=== PATIENT | female | born 1985 ===

== ENCOUNTER 2020-08-22 06:56 | Outpatient (REF) | payer MEDICAID, SELFPAY | END 2020-08-22 06:57 | disposition home or self-care (01) | LOC: HO.LAB 06:56 | PROVIDERS: Visit Provider Internal Medicine | DX: Z20.828 Contact with and (suspected) exposure to other viral communicable diseases (principal) | CPT/HCPCS: C9803; U0003 ==

== ENCOUNTER 2020-11-02 06:39 | Outpatient (REF) | payer MEDICAID, SELFPAY | END 2020-11-02 06:40 | disposition home or self-care (01) | LOC: HO.LAB 06:39 | PROVIDERS: PCP Internal Medicine; Visit Provider Internal Medicine | DX: Z20.822 Contact with and (suspected) exposure to COVID-19 (principal) | CPT/HCPCS: 36415; C9803; U0003 ==

== ENCOUNTER 2020-12-06 07:36 | Outpatient (REF) | payer MEDICAID, SELFPAY | END 2020-12-06 07:37 | disposition home or self-care (01) | LOC: HO.LAB 07:36 | PROVIDERS: Visit Provider Internal Medicine | DX: Z20.822 Contact with and (suspected) exposure to COVID-19 (principal) | CPT/HCPCS: 36415; C9803; U0003 ==

== ENCOUNTER 2021-01-17 08:01 | Outpatient (REF) | payer MEDICAID, SELFPAY ==
[2021-01-17 08:27] LABS: COVID-19 Test Negative (Negative); IDNOW Serial# 08D9AD1C
== END 2021-01-17 08:02 | disposition home or self-care (01) ==
LOC: HO.LAB 08:01
PROVIDERS: Visit Provider Internal Medicine
DX: Z20.822 Contact with and (suspected) exposure to COVID-19 (principal)
CPT/HCPCS: 36415; 87635; C9803

== ENCOUNTER 2021-01-22 13:00 | Outpatient (REF) | payer MEDICAID, SELFPAY ==
[2021-01-22 15:12] LABS: COVID-19 Test Negative (Negative)
== END 2021-01-22 13:01 | disposition home or self-care (01) ==
LOC: HO.LAB 13:00
PROVIDERS: Visit Provider Internal Medicine
DX: Z20.822 Contact with and (suspected) exposure to COVID-19 (principal)
CPT/HCPCS: 36415; 87635; C9803

== ENCOUNTER 2021-02-05 07:48 | Outpatient (REF) | payer MEDICAID, SELFPAY ==
[2021-02-05 08:08] LABS: COVID-19 Test Negative (Negative)
== END 2021-02-05 07:49 | disposition home or self-care (01) ==
LOC: HO.LAB 07:48
PROVIDERS: Visit Provider Internal Medicine
DX: Z20.822 Contact with and (suspected) exposure to COVID-19 (principal)
CPT/HCPCS: 36415; 87635; C9803

== ENCOUNTER 2021-05-14 09:19 | Outpatient (REF) | payer MEDICAID, SELFPAY | END 2021-05-14 09:20 | disposition home or self-care (01) | LOC: HO.LAB 09:19 | PROVIDERS: Visit Provider Internal Medicine | DX: Z20.822 Contact with and (suspected) exposure to COVID-19 (principal) | CPT/HCPCS: C9803; U0003; U0005 ==

== ENCOUNTER 2021-06-01 08:48 | Outpatient (REF) | payer MEDICAID, SELFPAY | END 2021-06-01 08:49 | disposition home or self-care (01) | LOC: HO.LAB 08:48 | PROVIDERS: Visit Provider Internal Medicine | DX: Z20.822 Contact with and (suspected) exposure to COVID-19 (principal) | CPT/HCPCS: C9803; U0003; U0005 ==

== ENCOUNTER 2021-10-30 08:04 | Outpatient (REF) | payer MEDICAID, SELFPAY ==
[2021-10-30 08:43] LABS: Binax Internal Control QC Valid; Binax Now Covid-19 Ag Negative (Negative)
== END 2021-10-30 08:05 | disposition home or self-care (01) ==
LOC: HO.LAB 08:04
PROVIDERS: Visit Provider Internal Medicine
DX: Z20.822 Contact with and (suspected) exposure to COVID-19 (principal)
CPT/HCPCS: C9803

== ENCOUNTER 2021-11-30 08:17 | Outpatient (REF) | payer MEDICAID, SELFPAY ==
[2021-11-30 08:39] LABS: COVID-19 Test Negative (Negative); IDNOW Serial# 16C4AD1C
== END 2021-11-30 08:18 | disposition home or self-care (01) ==
LOC: HO.LAB 08:17
PROVIDERS: Visit Provider Internal Medicine
DX: Z20.822 Contact with and (suspected) exposure to COVID-19 (principal)
CPT/HCPCS: 87635; C9803

== ENCOUNTER 2024-11-29 10:28 | Emergency (ER) | payer MEDICAID, SELFPAY ==
--- NOTE | ~2024-11-29 | XR_ITS ---
CLINICAL HISTORY: CP Chest radiographs, 2 views Comparison: None Findings: The cardiomediastinal silhouette is not enlarged. Pulmonary vascularity is unremarkable. No focal consolidation or effusion. No pneumothorax. IMPRESSION: No acute cardiopulmonary findings. This document has been electronically signed by: Gurinder Delgado DO on 11/29/2024 11:55:57
[2024-11-29 10:40] VITALS: BP 110/72; PULSE 72; RESP 18; TEMP 36.8; O2SAT 100; BMI 23.7
--- NOTE | 2024-11-29 11:03 | ECG_ITS ---
Test Reason : CP Blood Pressure : */* mmHG Vent. Rate : 70 BPM Atrial Rate : 70 BPM P-R Int : 96 ms QRS Dur : 72 ms QT Int : 380 ms P-R-T Axes : 40 64 46 degrees QTcB Int : 410 ms Sinus rhythm with short NH Otherwise normal ECG No previous ECGs available Referred By: Nohemi Orozco Electronically Signed By: RENA OROZCO
[2024-11-29 11:24] LABS: MANUAL DIFF FLAG NO
[2024-11-29 11:25] LABS: Basophils Percent Auto 0.6 % (0-2); Eosinophils Absolute Auto 0.1 X10*3/uL (0.0-0.4); Eosinophils Percent Auto 1.2 % (0-4); Hematocrit 32.4 % (37.0-47.0); Hemoglobin 10.8 g/dl (12.0-16.0); Imm Gran Abs Auto 0.01 X10*3/uL (0.00-0.03); Imm Gran Pct Auto 0.2 % (0.0-0.4); Lymphocytes Absolute Auto 1.3 X10*3/uL (1.2-4.9); Lymphocytes Percent Auto 26.5 % (20-40); Mean Corpuscular HGB Conc 33.3 g/dl (31.0-35.0); Mean Corpuscular Volume 87.1 fL (80.0-98.0); Mean Platelet Volume 11.8 fL (9.4-12.3); Monocytes Absolute Auto 0.6 X10*3/uL (0.1-1.2); Monocytes Percent Auto 12.8 % (2-11); Neutrophils Absolute Auto 2.9 x10*3/uL (2.0-8.3); Neutrophils Percent Auto 58.7 % (45-73); Platelet Count 194 X10*3/uL (160-400); Red Blood Count 3.72 X10*6/uL (4.20-5.50); Red Cell Distribution Width 15.8 % (11.0-16.0)
[2024-11-29 11:42] LABS: Alanine Aminotransferase 9 U/L (0-31); Albumin Level 4.2 g/dL (3.5-5.0); Alkaline Phosphatase 50 U/L (39-117); Anion Gap 13 (12-20); Aspartate Amino Transferase 28 U/L (5-31); Bilirubin Direct < 0.2 mg/dL (0.0-0.5); Bilirubin Total 0.1 mg/dL (0.0-1.0); Blood Urea Nitrogen 8 mg/dL (9-16); Calcium 8.7 mg/dL (8.4-10.2); Carbon Dioxide 23 mmol/L (22-29); Chloride 108 mmol/L (96-108); Creatinine Clr Calc Pharmacy 83.3; Estimated Glomerular Filt Rate > 60; Glucose Random 86 mg/dL (60-115); Lipase 12 U/L (8-78); Potassium 3.5 mmol/L (3.3-5.1); Sodium 140 mmol/L (135-145); Total Protein 7.6 g/dL (6.5-8.0)
[2024-11-29 11:48] LABS: Troponin-I High Sensitivity 5.2 ng/L (<3.5-17.0)
--- NOTE | 2024-11-29 12:10 | ED_ITS ---
HPI - General Adult General Chief complaint: Upper Respiratory Symptoms Stated complaint: Cough Fever Time Seen by Provider: 11/29/24 11:58 History of Present Illness HPI narrative: Patient was diagnosed with flu 3 days ago and is taking Tamiflu but now she has diarrhea vomiting nausea and body aches that are keeping her awake at night and is very uncomfortable, she does have chest pain only when she coughs she is not short of breath, she has a mild sore throat, she has no abdominal pain no dysuria no rash no stiff neck Related Data Previous Rx's ?Medication ?Instructions ?Recorded ondansetron 4 mg disintegrating 4 mg PO Q6H PRN nausea and 11/29/24 tablet vomiting #10 tabs oxycodone 5 mg tablet 5 mg PO Q6H PRN pain #10 tabs 11/29/24 Allergies Allergy/AdvReac Type Severity Reaction Status Date / Time Penicillins [PCN] Allergy Swelling Verified 11/29/24 10:45 PMF Past Medical History Source: nursing notes reviewed Social History Social History Advance Directives: No Advance Directives Information Provided: Yes Physical Exam ED Vital Signs: Vital Signs - 24 hr 11/29/24 10:40 11/29/24 15:09 Temperature 98.2 F 98.3 F Pulse Rate 72 76 Respiratory Rate 18 18 Blood Pressure 110/72 118/72 Pulse Oximetry 100 100 Oxygen Delivery Method Room Air Room Air BMI result Body Mass Index 23.7 General appearance uncomfortable appearing but no acute distress speaking full sentences breathing easily The eyes no redness or discharge The sinuses nontender The pharynx is clear no redness swelling or exudate voice is normal mucous membranes are moist The neck is supple Chest is clear to auscultation bilateral Heart no murmur Abdomen soft nontender Extremities full range motion x4 no edema no calf tenderness Skin no rash Course Course Course Narrative: CBC there was no white count, there was a mild anemia which she said she had had before with 10.8 hemoglobin 32.4 hematocrit, she is advised to get that rechecked with primary doctor Chemistry was without significant abnormality, troponin was checked and was 5.2, LFTs in the normal range EKG was a sinus rhythm with short TX with a rate of 70, no acute ischemic changes no ST elevations Chest x-ray was normal no pneumonia Patient was given a L of fluids and Zofran and was tolerating p.o. and feeling significantly improved and was discharged Medications Administered Discontinued Medications Generic Name Dose Route Start Last Admin Trade Name Lakeisha PRN Reason Stop Dose Admin Sodium Chloride 1,000 mls @ 999 mls/hr 11/29/24 13:15 11/29/24 15:21 Ns IVCONT 11/29/24 14:15 Infused .Q1H1M TANNER Infusion Ketorolac Tromethamine 15 mg 11/29/24 14:29 11/29/24 15:22 Ketorolac Tromethamine 15 Mg/Ml Vial IVPUSH 11/29/24 14:30 15 mg ONCE ONE Administration Ondansetron HCl 4 mg 11/29/24 13:05 11/29/24 13:21 Ondansetron Hcl 4 Mg/2 Ml Vial IVPUSH 11/29/24 13:06 4 mg ONCE ONE Administration Medical Decision Making Lab Data [facility] Lab Attestation statement: I reviewed the patient's lab results. 11/29/24 11:17 11/29/24 11:17 Labs: Lab Results 11/29/24 Range/Units 11:17 WBC 5.0 (4.8-10.8) X10*3/uL RBC 3.72 L (4.20-5.50) X10*6/uL Hgb 10.8 L (12.0-16.0) g/dl Hct 32.4 L (37.0-47.0) % MCV 87.1 (80.0-98.0) fL MCH 29.0 (27.0-33.0) pg MCHC 33.3 (31.0-35.0) g/dl RDW 15.8 (11.0-16.0) % Plt Count 194 (160-400) X10*3/uL MPV 11.8 (9.4-12.3) fL Immature Gran % (Auto) 0.2 (0.0-0.4) % Neut % (Auto) 58.7 (45-73) % Lymph % (Auto) 26.5 (20-40) % [place] % (Auto) 12.8 H (2-11) % Eos % (Auto) 1.2 (0-4) % Baso % (Auto) 0.6 (0-2) % Lymph # (Auto) 1.3 (1.2-4.9) X10*3/uL [place] # (Auto) 0.6 (0.1-1.2) X10*3/uL Eos # (Auto) 0.1 (0.0-0.4) X10*3/uL Baso # (Auto) 0.0 (0.0-0.2) X10*3/uL Abs Immat Gran (auto) 0.01 (0.00-0.03) X10*3/uL Absolute Neuts (auto) 2.9 (2.0-8.3) x10*3/uL Absolute Nucleated RBC 0.000 (0.0-0.012) X10*3/uL Nucleated RBC % (auto) 0.0 (0.0-0.2) /100WBC Sodium 140 (135-145) mmol/L Potassium 3.5 (3.3-5.1) mmol/L Chloride 108 (96-108) mmol/L Carbon Dioxide 23 (22-29) mmol/L Anion Gap 13 (12-20) BUN 8 L (9-16) mg/dL Creatinine 0.67 (0.5-1.4) mg/dL Estim Creat Clear Calc 83.3 Estimated GFR > 60 Random Glucose 86 (60-115) mg/dL Calcium 8.7 (8.4-10.2) mg/dL Magnesium 2.0 (1.6-2.6) mg/dL Total Bilirubin 0.1 (0.0-1.0) mg/dL Direct Bilirubin < 0.2 (0.0-0.5) mg/dL AST 28 (5-31) U/L ALT 9 (0-31) U/L Alkaline Phosphatase 50 (39-117) U/L Troponin I High Sens 5.2 (<3.5-17.0) ng/L Total Protein 7.6 (6.5-8.0) g/dL Albumin 4.2 (3.5-5.0) g/dL Lipase 12 (8-78) U/L Influenza Type A (PCR) POSITIVE A (Negative) Influenza Type B (PCR) NEGATIVE (Negative) RSV RNA Qual (PCR) NEGATIVE (Negative) SARS-CoV-2 RNA (RT-PCR) NEGATIVE (Negative) Discharge Plan Discharge Clinical Impression: Influenza Patient Disposition: Home, Self-Care Additional Instructions: The flu can cause body aches and nausea and vomiting But sometimes Tamiflu can make vomiting and diarrhea worse You can take Zofran for nausea, it is very important stay hydrated to feel better If needed you can use Imodium for diarrhea Use Tylenol and Motrin as needed for body aches, and I wrote a few oxycodone if pain is more severe There was nothing concerning on your blood tests or EKG, your chest x-ray was normal Return to the ER any time for difficulty breathing uncontrolled vomiting and dehydration any worse condition or any concerns Prescriptions: New ondansetron 4 mg tablet,disintegrating 4 mg PO Q6H PRN (Reason: nausea and vomiting) Qty: 10 0RF oxycodone 5 mg tablet 5 mg PO Q6H PRN (Reason: pain) Qty: 10 0RF Rx Instructions: Partial Fill upon patient request. Stand Alone Forms: Work/School Release Print Language: [place]
--- OUTSIDE RECORDS SUMMARY | 2024-11-29 12:14 | XMS_ITS | Clinical Summary ---
Author Organization [facility] Address [address] [place] [address] Phone Care Team Providers Care Lehr Stripper Name Role Phone Physician, No Pcp Primary Care Provider Unavaila ble Allergies Active Allergy Reactions Criticality Noted Date Comments Penicillins Anaphylaxis High 06/19/2016 Other reaction(s): Throat Tightness Patient reported Patient reported Other reaction(s): Throat Tightness Patient reported Medications oseltamivir (TAMIFLU) 75 mg capsule Take 1 capsule (75 mg total) by mouth every 12 (twelve) hours for 5 days. 10 capsule 11/27/2024 Active ibuprofen (ADVIL,MOTRIN) 600 mg tablet Take 1 tablet (600 mg total) by mouth every 6 (six) hours if needed for mild pain. 30 tablet 11/27/2024 Active pseudoephedrine (SUDAFED) 120 mg 12 hr tablet Take 1 tablet (120 mg total) by mouth every 12 (twelve) hours if needed for congestion. Do not crush, chew, or split. 20 each 11/27/2024 Active Encounters Date Type Department Care Team Description 11/27/2024 8:04 AM EST - 11/27/2024 9:[address] [facility] [address] [place] [address] Influenza A (Primary Dx) Discharge Disposition: Home or Self Care from Last 3 Months Medical History Medical History Date Comments Asthma Tachycardia Social History Tobacco Use Types Packs/Day Years Used Date Smoking Tobacco: Every Day Cigarettes Smokeless Tobacco: Never Tobacco Cessation:Ready to Q uit: Not Asked; Counseling Given: Not Answered Comments Unknown Sex and Gender Information Value Date Recorded Sex Assigned at Not on file Legal Sex Female 11:27 PM EST Gender Identity Not on file Sexual Orientation Not on file Obstetrics History Last Filed Vital Signs Vital Sign Reading Time Taken Comments Blood Pressure 111/60 11/27/2024 9:24 AM EST Pulse 90 11/27/2024 9:24 AM EST Temperature 36.8 ??C (98.2 ??F) 11/27/2024 9:24 AM ES T Respiratory Rate 16 11/27/2024 9:24 AM EST Oxygen Saturation 98% 11/27/2024 9:24 AM EST Inhaled Oxygen Concentration - - Weight 59 kg (130 lb) 11/27/2024 8:12 AM EST Height 154.9 cm (5' 1 ) 11/27/2024 8:12 AM EST Body Mass Index 24.56 11/27/2024 8:12 AM EST Plan of Treatment Health Maintenance Due Date Last Done Comments Breast Cancer Screening 1983 Cervical Cancer Screening: Pap Smear 2004 Hepatitis B Vaccines (3 of 3 - 19+ 3-dose series) 10/04/2020 08/09/2020, 03/02/2019, 03/24/2018 Pneumococcal Vaccine: Pediatrics (0 to 5 Years) and At-Risk Patients (6 to 64 Years) (2 of 2 - PCV) 08/09/2021 08/09/2020 Cholesterol Screening (Lipid Panel) 09/15/2022 HIV Screening 09/15/2022 Social Influencers of Health Screening 09/15/2022 Depression Screening 04/27/2024 04/27/2023 COVID-19 Vaccine ( season) 2024 03/27/2022, 08/22/2021, 02/17/2021 Influenza Vaccine (#1) 2024 2, 08/09/2020, 08/19/2018, Additional history exists DTaP,Tdap,and Td Vaccines (2 - Td or Tdap) 07/23/2026 07/23/2016 Hepatitis C Screening Completed 03/02/2019 HIB Vaccines Aged Out No longer eligi ble based on patient's age to complete this topic HPV Vaccines Aged Out No longer eligi ble based on patient's age to complete this topic Hepatitis A Vaccines Aged Out No long er eligible based on patient's age to complete this topic IPV Vaccines Aged Out No longer eligi ble based on patient's age to complete this topic MMR Vaccines Aged Out No longer eligi ble based on patient's age to complete this topic Meningococcal ACWY Vaccine Aged Out N o longer eligible based on patient's age to complete this topic Meningococcal B Vacine Aged Out No lo nger eligible based on patient's age to complete this topic RSV Immunization Patients Under 20 months Aged Out No longer eligible based on patient's age to complete this topic Varicella Vaccines Aged Out No longer eligible based on patient's age to complete this topic Procedures Procedure Name Priority Date/Time Associated Diagnosis Comments [id number], RSV, FLU A AND B QUALITATIVE RT-PCR, INTERNAL LAB STAT 11/27/2024 8:03 AM EST from Last 3 Months Results * (ABNORMAL) [id number], RSV, Influenza A and B qualitative RT-PCR (11/27/2024 8:03 AM EST) Influenza A PCR Detected(A) Not Detected LAB MICROBIOLOGY METHOD 11/27/2024 9:08 AM [facility] Comment:This patient is posi tive for influenza A. If the patient is admitted, please order the Respiratory Virus Panel PCR ([facility] ID: [id number]) so our lab can subtype the influenza A, per CDC recommendations. Influenza B PCR Not Detected Not Detected LAB MICROBIOLOGY METHOD 11/27/2024 9:08 AM [facility] RSV PCR Not Detected Not Detected LAB MICROBIOLOGY METHOD 11/27/2024 9:08 AM [facility] SARS COV-2 Not Detected Not Detected LAB MICROBIOLOGY METHOD 11/27/2024 9:08 AM [facility] Swab Both anterior nares / Unknown Non-blood Collection / Unknown 11/27/2024 8:03 AM EST 11/27/2024 8:17 AM EST [facility] - 11/27/2024 9:08 AM EST Disclaimer: ??Testing was performed using the Cepheid GeneXpert Xpress SARS-CoV-2 _Flu_RSV PLUS PCR assay. ??The manner in which this information is used to guide patient care is the responsibility of the healthcare provider. ??Results should be correlated with the clinical history, epidemiological data, and other data available to the clinician evaluating the patient. ??Negative results do not preclude infection. ??This test has been authorized by the FDA under an Emergency Use Authorization (EUA). ??This test is only authorized for the duration of time the declaration that circumstances exist justifying the authorization of the emergency use of in vitro diagnostic tests for detection of SARS-CoV-2 virus and/or diagnosis of COVID-19 infection under section 564 (b) (1) of the Act, 21 U.S.C 360bbb-3 (b) (1), unless the authorization is terminated or revoked sooner. ?? Reference Range: Not Detected Fact sheet for Healthcare providers can be found at https://www.fda.gov/media/556002/download. ?? Fact sheet for Healthcare patients can be found at https://www.fda.gov/media/941425/download. us [facility] MICROBIOLOGY - GENER AL ORDERABLES Final Result [facility] [address] [place] [address], from Last 3 Months Additional Health Concerns Infection Onset Date Last Indicated Influenza 11/27/2024 11/27/2024 Care Teams Lehr Stripper Relationship Specialty Start Date End Date Physician, No Pcp PCP - General 11/27/24
--- OUTSIDE RECORDS SUMMARY | 2024-11-29 12:14 | XMS_ITS | Encounter Summary ---
Author Organization [facility] Address [address] [place] [address] Care Team Providers Care Outbound Sales Advisor Name Role Phone Physician, No Pcp Primary Care Provider Unavaila ble Reason for Visit * Reason Comments Flu Symptoms Fever, bodyaches, co ugh since yesterday Encounter Details Date Type Department Care Team (Late st Contact Info) Description 11/27/2024 8:04 AM EST - 11/27/2024 9:44 AM EST Emergency [facility] Emergency [address] [place] [address] Influenza A (Primary Dx) Discharge Disposition: Home or Self Care Social History Tobacco Use Types Packs/Day Years Used Date Smoking Tobacco: Every Day Cigarettes Smokeless Tobacco: Never Tobacco Cessation:Ready to Q uit: Not Asked; Counseling Given: Not Answered Comments Unknown Sex and Gender Information Value Date Recorded Sex Assigned at Not on file Legal Sex Female 11:27 PM EST Gender Identity Not on file Sexual Orientation Not on file documented as of this encounter Last Filed Vital Signs Vital Sign Reading [...] Mass Index 24.56 11/27/2024 8:12 AM EST documented in this encounter Discharge Instructions * Discharge Instructions* LORIE Stephenson - 11/27/2024 9:21 AM EST Follow-up with your PCP as needed. Take the prescribed Tamiflu twice daily for the next 5 days. Take the prescribed ibuprofen 600 mg every 6 hours as needed for pain take [id number] Tylenolevery 6 hours as needed for pain (2 500 MG TABLETS). You can take up to 4000MAX in a 24 hour period. The prescribed Sudafed daily as needed for nasal congestion * Attachments The following attachments cannot be sent through Care Everywhere. * Influenza (Egyptian) documented in this encounter Medications at Time of Discharge ibuprofen (ADVIL,MOTRIN) 600 mg tablet Take 1 tablet (600 mg total) by mouth every 6 (six) hours if needed for mild pain. 30 tablet 11/27/2024 oseltamivir (TAMIFLU) 75 mg capsule Take 1 capsule (75 mg total) by mouth every 12 (twelve) hours for 5 days. 10 capsule 11/27/2024 12/02/2024 pseudoephedrine (SUDAFED) 120 mg 12 hr tablet Take 1 tablet (120 mg total) by mouth every 12 (twelve) hours if needed for congestion. Do not crush, chew, or split. 20 each 11/27/2024 documented as of this encounter Ordered Prescriptions Prescription Sig Dispense Quantity Refills Last Filled Start Date End Date pseudoephedrine (SUDAFED) 120 mg 12 hr tablet Take 1 tablet (120 mg total) by mouth every 12 (twelve) hours if needed for congestion. Do not crush, chew, or split. 20 each 11/27/2024 ibuprofen (ADVIL,MOTRIN) 600 mg tablet Take 1 tablet (600 mg total) by mouth every 6 (six) hours if needed for mild pain. 30 tablet 11/27/2024 oseltamivir (TAMIFLU) 75 mg capsule Take 1 capsule (75 mg total) by mouth every 12 (twelve) hours for 5 days. 10 capsule 11/27/2024 documented in this encounter Discharge Disposition Disposition Code Departure Means Destination Comment s Home or Self Care documented in this encounter Progress Notes * Diya Hyman RN - 11/27/2024 7:54 AM EST Pt triaged using mixer operator raw salt, pt coming in for flu like symptoms since yesterday, body aches/fevers/sob/cough * LORIE Stephenson - 11/27/2024 7:52 AM EST Emergency Medicine Note Patient Name: Rema Jimenez Initial Evaluation: 11/27/2024 : 1985 Patient's PCP: No Pcp Physician Emergency Physician: LORIE Edward History of Present Illness Chief Complaint: Chief Complaint Patient presents with Flu Symptoms Fever, bodyaches, cough since yesterday HPI: 39-year-old female with a history of asthma presents today with flulike symptoms since yesterday. Patient has had fever, chills, body aches, runny nose, congestion and fatigue. Patient did not get the flu shot this year. Patient denies any chest pain but does feel some shortness of breath with coughing. Patient denies any nausea vomiting diarrhea. ROS: I have performed a ROS with the pertinent positives and negatives documented in the history ofpresent illness. Previous History Past Medical History: Diagnosis Date Asthma Tachycardia History reviewed. No pertinent surgical history. Social History Tobacco Use Smoking status: Every Day Types: Cigarettes Smokeless tobacco: Never No family history on file. is allergic to penicillins. No current facility-administered medications on file prior to encounter. No current outpatient medications on file prior to encounter. Physical Exam ED Triage Vitals [11/27/24 0800] Temp Heart Rate Resp BP 37.2 ??C (99 ??F) (!) 117 18 122/81 SpO2 Temp Source Heart Rate Source Patient Position 100 % Oral Monitor Sitting BP Location FiO2 (%) Right arm -- General: awake, calm, cooperative, No apparent distress, sounds nasally congested, nonproductive cough heard Skin: warm, dry Eyes: PERRLA, EOMI ENT: mucosa moist Neck: soft/supple, full range of motion Respiratory: clear to auscultation Cardiovascular: regular rate and rhythm Neurological: alert with no acute lateralizing deficit Psychiatric: stable mood and affect Results Labs Reviewed [id number], RSV, FLU A AND B QUALITATIVE RT-PCR, INTERNAL LAB - Abnormal Result Value Influenza A PCR Detected (*) Influenza B PCR Not Detected RSV PCR Not Detected SARS COV-2 Not Detected Narrative: Disclaimer: Testing was performed using the [employer] GeneXpert Xpress SARS-CoV-2 _Flu_RSV PLUS PCR assay. The manner in which this information is used to guide patient care is the responsibility of the healthcare provider. Results should be correlated with the clinical history, epidemiological data,and other data available to the clinician evaluating the patient. Negative results do not preclude infection. This test has been authorized by the FDA under an Emergency Use Authorization (EUA). Thistest is only authorized for the duration of time the declaration that circumstances exist justifying the authorization of the emergency use of in vitro diagnostic tests for detection of SARS-CoV-2 virus and/or diagnosis of COVID-19 infection under section 564 (b) (1) of the Act, 21 U.S.C 360bbb-3 (b) (1), unless the authorization is terminated or revoked sooner. Reference Range: Not Detected Fact sheet for Healthcare providers can be found at https://www.fda.gov/media/762778/download. Fact sheet for Healthcare patients can be found at https://www.fda.gov/media/600128/download. Abnormal Labs Reviewed [id number], RSV, FLU A AND B QUALITATIVE RT-PCR, INTERNAL LAB - Abnormal; Notable for the following components: Result Value Influenza A PCR Detected (*) All other components within normal limits Narrative: Disclaimer: Testing was performed using the [employer] GeneXpert Xpress SARS-CoV-2 _Flu_RSV PLUS PCR assay. The manner in which this information is used to guide patient care is the responsibility of the healthcare provider. Results should be correlated with the clinical history, epidemiological data,and other data available to the clinician evaluating the patient. Negative results do not preclude infection. This test has been authorized by the FDA under an Emergency Use Authorization (EUA). Thistest is only authorized for the duration of time the declaration that circumstances exist justifying the authorization of the emergency use of in vitro diagnostic tests for detection of SARS-CoV-2 virus and/or diagnosis of COVID-19 infection under section 564 (b) (1) of the Act, 21 U.S.C 360bbb-3 (b) (1), unless the authorization is terminated or revoked sooner. Reference Range: Not Detected Fact sheet for Healthcare providers can be found at https://www.fda.gov/media/793725/download. Fact sheet for Healthcare patients can be found at https://www.fda.gov/media/589204/download. No orders to display I have discussed the incidental/abnormal imaging and/or lab abnormalities with the patient and haveinstructed them the need for further evaluation and workup with their primary care doctor. I have provided the patient with a paper copy of the abnormality. The laboratory results, imaging results and other diagnostic exam results were reviewed in the EMR. EKG Interpretation Critical Care Time None ? Medical Decision Making 39-year-old female presents today with flulike symptoms positive for influenza A. Patient is presenting within the timeframe for Tamiflu and she does have risk factors including history of asthma, did not get the influenza vaccine this year. I discussed with her the options to take Tamiflu, she wants to take it, understands the side effects. Patient was advised to continue with Tylenol at home, rest, fluids, prescription provided for ibuprofen and Tamiflu. Patient was also given prescription for Sudafed but told to stop taking it if it causes any sort of palpitations as this has affected her in the past. Medications - No data to display Clinical Impressions as of 11/27/24 0923 Influenza A Procedures Procedures Diagnosis 1. Influenza A Disposition Discharge ED Prescriptions Medication Sig Dispense Start Date End Date Auth. Provider oseltamivir (TAMIFLU) 75 mg capsule Take 1 capsule (75 mg total) by mouth every 12 (twelve) hours for 5 days. 10 capsule 11/27/2024 12/02/2024 LORIE Stephenson ibuprofen (ADVIL,MOTRIN) 600 mg tablet Take 1 tablet (600 mg total) by mouth every 6 (six) hours ifneeded for mild pain. 30 tablet 11/27/2024 -- LORIE Stephenson pseudoephedrine (SUDAFED) 120 mg 12 hr tablet Take 1 tablet (120 mg total) by mouth every 12 (twelve) hours if needed for congestion. Do not crush, chew, or split. 20 each 11/27/2024 -- LORIE Stephenson Physician Attestation LORIE Stephenson 11/27/24 0940 Cosigned by Aaron Andre MD at 11/28/2024 11:05 AM EST documented in this encounter Plan of Treatment Not on file documented as of this encounter Procedures Procedure Name Priority Date/Time Associated Diagnosis Comments [id number], RSV, FLU A AND B QUALITATIVE RT-PCR, INTERNAL LAB STAT 11/27/2024 8:03 AM EST documented in this encounter Results * (ABNORMAL) [id number], RSV, Influenza A and B qualitative RT-PCR (11/27/2024 8:03 AM EST) Influenza A PCR Detected(A) Not Detected LAB MICROBIOLOGY METHOD 11/27/2024 9:08 AM [facility] Comment:This patient is posi tive for influenza A. If the patient is admitted, please order the Respiratory Virus Panel PCR ([facility] ID: [id number]) so our lab can subtype the influenza A, per CDC recommendations. Influenza B PCR Not Detected Not Detected LAB MICROBIOLOGY METHOD 11/27/2024 9:08 AM EST [facility] RSV PCR Not Detected Not Detected LAB MICROBIOLOGY METHOD 11/27/2024 9:08 AM [facility] SARS COV-2 Not Detected Not Detected LAB MICROBIOLOGY METHOD 11/27/2024 9:08 AM [facility] Swab Both anterior nares / Unknown Non-blood Collection / Unknown 11/27/2024 8:03 AM EST 11/27/2024 8:17 AM EST [facility] - 11/27/2024 9:08 AM EST Disclaimer: ??Testing was performed using the [employer] GeneXpert Xpress SARS-CoV-2 _Flu_RSV PLUS PCR assay. [...] for Healthcare providers can be found at https://www.fda.gov/media/652535/download. ?? Fact sheet for Healthcare patients can be found at https://www.fda.gov/media/695305/download. [facility] MICROBIOLOGY - GENER AL ORDERABLES Final Result [facility] [address] [place] [address], documented in this encounter Visit Diagnoses Diagnosis Influenza A- Primary Influenza with other respiratory manifestations documented in this encounter Additional Health Concerns Infection Onset Date Last Indicated Resolved Time Respiratory Rule-Out 11/27/2024 11/27/2024 025 9:08 AM EST COVID-19 Rule-Out 11/27/2024 11/27/2024 11/27/2024 9:08 AM EST Influenza 11/27/2024 11/27/2024 documented as of this encounter Care Teams Outbound Sales Advisor Relationship Specialty Start Date End Date Physician, No Pcp PCP - General 11/27/24 documented as of this encounter
[2024-11-29 12:27] LABS: Influenza A PCR POSITIVE (Negative); Influenza B PCR NEGATIVE (Negative); Resp Syncy Virus RNA Qual PCR NEGATIVE (Negative); SARS COV2 PCR INHOUSE NEGATIVE (Negative)
[2024-11-29] MEDS: 0.9 % Sodium Chloride 1,000 ML 999 ML IVCONT (13:08)
[2024-11-29] MEDS: ondansetron HCL 4 MG/2 ML VIAL IVPUSH (13:21)
[2024-11-29 15:09] VITALS: BP 118/72; PULSE 76; RESP 18; TEMP 36.8; O2SAT 100
[2024-11-29] MEDS: Ketorolac Tromethamine 15 MG/ML VIAL IVPUSH (15:22)
[2024-11-29 15:30] VITALS: BP 118/72; PULSE 76; RESP 18; TEMP 36.8; O2SAT 100
== END 2024-11-29 15:31 | disposition home or self-care (01) ==
PROVIDERS: Physician Assistant Medical; Emergency Provider Emergency Medicine
DX: J10.1 Influenza due to other identified influenza virus with other respiratory manifestations (principal); R05.9 Cough, unspecified; R50.9 Fever, unspecified; R11.2 Nausea with vomiting, unspecified; R07.89 Other chest pain; Z03.818 Encounter for observation for suspected exposure to other biological agents ruled out; Z79.899 Other long term (current) drug therapy
CPT/HCPCS: 0241U; 36415; 71046; 80048; 80076; 83690; 83735; 84484; 85025; 93005; 96361; 96374; 96375; 99284; J1885; J2405

== ENCOUNTER → 2024-11-29 11:03 | Outpatient (BNV) | payer MEDICAID, SELFPAY | PROVIDERS: Emergency Provider Emergency Medicine; Visit Provider Internal Medicine | DX: I45.6 Pre-excitation syndrome (principal) | CPT/HCPCS: 93010 ==

== ENCOUNTER → 2024-11-29 11:03 | Outpatient (BNV) | payer MEDICAID, SELFPAY | PROVIDERS: Emergency Provider Emergency Medicine; Visit Provider Radiology Diagnostic Radiology | DX: R07.9 Chest pain, unspecified (principal) | CPT/HCPCS: 71046 ==

== ENCOUNTER 2025-04-15 08:24 | Emergency (ER) | payer MEDICAID, SELFPAY ==
[2025-04-15 08:29] VITALS: BP 111/69; PULSE 82; RESP 18; TEMP 36.8; O2SAT 100; BMI 24.6
--- NOTE | 2025-04-15 09:24 | ED_ITS ---
HPI - Extremity Problem General Chief complaint: Extremity Injury, Upper Stated complaint: shoulder pain Time Seen by Provider: 04/15/25 08:53 History of Present Illness HPI Narrative: Patient is a 39-year-old female presented today with having right shoulder pain started 3 days ago. Pain worse with movement when she turns her head. It is over the trapezius area. There is no difficulty moving her shoulder. There is no difficulty moving her elbow wrist hand. Has no significant past medical problems. On no medication normally. Patient is from home. No trauma to the area. No focal weakness. Related Data Previous Rx's ?Medication ?Instructions ?Recorded ondansetron 4 mg disintegrating 4 mg PO Q6H PRN nausea and 11/29/24 tablet vomiting #10 tabs oxycodone 5 mg tablet 5 mg PO Q6H PRN pain #10 tab s 11/29/24 cyclobenzaprine 10 mg tablet 10 mg PO TID PRN pain #14 tabs 04/15/25 ibuprofen 400 mg tablet 400 mg PO Q6H PRN pain #20 t abs 04/15/25 Allergies Allergy/AdvReac Type Severity Reaction Status Date / Time Penicillins (PCN) Allergy Swelling Verified 04/15/25 08:31 Review of Systems Review of Systems: No fever no chills no chest pain or shortness breath no diaphoresis Yes all other systems are reviewed and are negative [facility] Past Medical History Attestation statement: The following information was validated with the patient. Social History Social History Advance Directives: No Advance Directives Information Provided: Yes Physical Exam Vital Signs: Vital Signs: Last Vital Signs Temp 98.3 F 04/15/25 08:29 Pulse 82 04/15/25 08:29 Resp 18 04/15/25 08:29 BP 111/69 04/15/25 08:29 Pulse Ox 100 04/15/25 08:29 O2 Del Method Room Air 04/15/25 08:29 BMI result Body Mass Index 24.6 Appearance: Alert. Oriented X3. No acute distress. Eyes: Pupils equal, round and reactive to light. ENT: Pharynx normal. Neck: Normal inspection. Neck supple. No lymph nodes noted. No crepitus. There is no point tenderness noted in the posterior spine. There is pain on palpation of the right trapezius muscle. There is pain on movement of her neck to the right side. There is no pain on flexion. Range of motion is still grossly intact. CVS: Normal heart rate and rhythm. Pulses normal. Normal S1 and S2 Respiratory: No respiratory distress. Breath sounds normal. No Wheezing. No rales Abdomen: Soft and nontender. No rigidity. No distention. good BS x4 Skin: Skin warm and dry. Normal skin color. Normal skin turgor. Extremities: No lower extremity edema. Neurovascular intact to all extremities. No Lacerations. No Rash. Right upper extremity- Sensation over axillary, median, radial, ulnar nerve intact. Movement over the shoulder, elbow, wrist intact. Opposition thumb intact. Neuro: Oriented X 3. No motor deficit. No sensory deficit. Moving all extermities. No slurred speech Medical Decision Making Medical Decision Making MDM Narrative: Symptom most likely musculoskeletal in nature. Patient in no distress. Neurologically intact. No focal weakness. Pain with specific movement. No signs of meningitis. Will discharge patient home close follow-up on an outpatient basis. Differential Diagnosis Differential Diagnoses: The differential diagnosis associated with the presentation includes Admission/Observation Consideration of admission/observation: Escalation of care including admission/observation considered Lab Data [facility] Lab Attestation statement: I reviewed the patient's lab results. Prescription Management I considered prescription management with: Pain Medication Discharge Plan Discharge Clinical Impression: Neck sprain Patient Disposition: Home, Self-Care Instructions: Cervical Sprain (ED) Prescriptions: New cyclobenzaprine 10 mg tablet 10 mg PO TID PRN (Reason: pain) Qty: 14 0RF ibuprofen 400 mg tablet 400 mg PO Q6H PRN (Reason: pain) Qty: 20 0RF No Action ondansetron 4 mg tablet,disintegrating 4 mg PO Q6H PRN (Reason: nausea and vomiting) Qty: 10 0RF oxycodone 5 mg tablet 5 mg PO Q6H PRN (Reason: pain) Qty: 10 0RF Rx Instructions: Partial Fill upon patient request. Referrals: Physician,Unknown J [Primary Care Provider, Medical] - 1 week Print Language: Czech
[2025-04-15 10:05] VITALS: BP 111/69; PULSE 82; RESP 18; TEMP 36.8; O2SAT 100
== END 2025-04-15 10:05 | disposition home or self-care (01) ==
PROVIDERS: Emergency Provider Emergency Medicine Emergency Medical Services
DX: S13.9XXA Sprain of joints and ligaments of unspecified parts of neck, initial encounter (principal); X58.XXXA Exposure to other specified factors, initial encounter; M25.511 Pain in right shoulder; Y93.9 Activity, unspecified; Y92.9 Unspecified place or not applicable; Y99.9 Unspecified external cause status
CPT/HCPCS: 99283